=== PATIENT | male | born 1990 | race Caucasian/White ===

== ENCOUNTER 2018-10-28 03:18 | Emergency (ER) | payer OTHER ==
[~2018-10-28] VITALS: Ht 180.3 cm; Wt 85.5 kg
[~2018-10-28 03:18] MED LIST: QUET200T PO; TRIH5TAB2 PO
[2018-10-28 04:06] LABS: AMPHET/METH SCREEN,URINE NEGATIVE (NEGATIVE); BARBITURATE SCREEN, URINE NEGATIVE (NEGATIVE); BENZODIAZEPINES SCREEN,URINE NEGATIVE (NEGATIVE); CANNABINOID SCREEN,URINE NEGATIVE (NEGATIVE); COCAINE SCREEN,URINE NEGATIVE (NEGATIVE); METHADONE SCREEN, URINE NEGATIVE (NEGATIVE); OPIATE SCREEN,URINE NEGATIVE (NEGATIVE)
[2018-10-28 04:19] LABS: PHENCYCLIDINE SCREEN,URINE NEGATIVE (NEGATIVE)
[2018-10-28 04:55] VITALS: BP 132/71
== END 2018-10-28 05:31 | disposition home or self-care (01) ==
LOC: EMS 03:19
DX: F15.10 Other stimulant abuse, uncomplicated (principal); F20.9 Schizophrenia, unspecified; Z79.899 Other long term (current) drug therapy

== ENCOUNTER 2024-05-20 13:26 | Emergency (ER) | payer OTHER ==
[~2024-05-20] VITALS: Ht 180.3 cm; Wt 111.4 kg
[~2024-05-20 13:26] MED LIST changes: -TRIH5TAB2 PO; +TRIH5TAB4 PO
[2024-05-20 13:39] VITALS: TEMP 98.2
[2024-05-20] MEDS ORDERED: BENZ2TAB84 PO ×2 (13:39→15:25)
[2024-05-20] MEDS ORDERED: ALBU18HF12 IH (13:39)
[2024-05-20] MEDS ORDERED: METF-1211 PO (13:39)
[2024-05-20] MEDS ORDERED: FAMO20 PO (13:39)
[2024-05-20] MEDS ORDERED: PROP10TA72 PO ×2 (13:39→15:25)
[2024-05-20] MEDS ORDERED: PALI6TAB15 PO ×2 (13:39→15:25)
[2024-05-20] MEDS ORDERED: LORA10TA7 PO (13:39)
[2024-05-20] MEDS ORDERED: TRAZ-257 PO ×2 (13:39→15:25)
[2024-05-20] MEDS ORDERED: BUSP10TA23 PO ×2 (13:39→15:25)
[2024-05-20] MEDS: BusPIRone HCL 10 MG TABLET PO ONE (16:05)
[2024-05-20 16:09] VITALS: BP 132/78; PULSE 86; RESP 16
== END 2024-05-20 16:12 | disposition home or self-care (01) ==
LOC: EMS 13:26
DX: F41.9 Anxiety disorder, unspecified (principal); F20.9 Schizophrenia, unspecified
CPT/HCPCS: 99283